=== PATIENT | female | born 1990 | race Two or more races ===

== ENCOUNTER → 2024-10-28 | Outpatient (CLI) | payer MEDICAID, SELFPAY ==
--- NOTE | 2024-10-28 10:05 | RESP.EEG ---
EEG COMPLETED AT THIS TIME AND WAITING TO BE READ
== END | disposition home or self-care (01) ==
LOC: SRTX 09:09
PROVIDERS: Referring Provider Psychiatry & Neurology Neurology; Visit Provider Psychiatry & Neurology Neurology
DX: R42 Dizziness and giddiness (principal)
CPT/HCPCS: 95816